=== PATIENT | female | born 1950 | race Caucasian/White ===

== ENCOUNTER 2023-04-22 09:30 | Outpatient (CLI) | payer MEDICARE, BC | END 2023-04-22 09:31 | disposition home or self-care (01) | LOC: BICMAMMO 09:30 | PROVIDERS: ATTEND Family Medicine | DX: Z12.31 Encounter for screening mammogram for malignant neoplasm of breast (principal); M85.89 Other specified disorders of bone density and structure, multiple sites | CPT/HCPCS: 77063; 77067; 77080 ==